=== PATIENT | male | born 1965 | race Caucasian/White ===

== ENCOUNTER 2017-07-17 14:50 | Inpatient (IN) ==
[2017-07-17] MEDS ORDERED: ASPIRIN PO STA (14:55)
[2017-07-17 15:21] LABS: MANUAL DIFF NEEDED? NO
--- NOTE | 2017-07-17 15:21 | EKG Report ---
Test Performed on : 07/17/2017 2:53:19 PM Test Reason : CHEST PAIN Blood Pressure : / mmHG Vent. Rate : 104 BPM Atrial Rate : 104 BPM P-R Int : 128 ms QRS Dur : 078 ms QT Int : 322 ms P-R-T Axes : 049 068 076 degrees QTc Int : 423 ms Sinus tachycardia. Nonspecific T wave abnormality Abnormal ECG When compared with ECG of 14-JUL-2014 12:42, No significant change was found Unconfirmed Result
[2017-07-17 15:24] LABS: BASO% 0.5 % (0.0-0.8); EOS# 0.36 X1000 (0.0-0.7); EOS% 3.9 % (0.0-10.0); HEMATOCRIT 38.5 % (42.0-52.0); IMM GRAN# 0.12 X1000 (0.0-0.04); IMM GRAN% 1.3 % (0.0-0.5); LYMPH# 2.58 X1000 (1.2-3.4); LYMPH% 28.2 % (20.5-51.1); MCHC 33.8 g/dL (33-37); MCV 91.9 FL (81-99); MONO# 0.78 X1000 (0.11-0.59); MONO% 8.5 % (1.7-9.3); MPV 9.3 FL (7.4-10.4); NEUT% 57.6 % (42.2-75.2); PLT 335 X1000 (130-400); RBC 4.19 XMIL (4.7-6.1)
--- NOTE | 2017-07-17 15:44 | PROVIDER DOCUMENTATION ---
HPI-Chest Pain - General Chief Complaint: Chest Pain Stated Complaint: RIGHT SIDED CHEST PAIN Time Seen by Provider: 07/17/17 15:30 Source: patient Allergies/Adverse Reactions: Patient Allergies Allergy/AdvReac Type Severity Reaction Status Date / Time No Known Allergies Allergy Verified 07/12/17 16:54 Home Medications: Home Medication List Medication Instructions Recorded Confirmed Last Taken Type Albuterol Sulfate Inhaler 2 puff INH Q6H PRN PRN 03/20/16 07/12/17 07/12/17 06: 00 History [Ventolin Hfa] Folic Acid 1 mg PO DAILY 03/20/16 07/12/17 07/09/17 08:00 History Gabapentin 800 mg PO TID 03/20/16 07/12/17 07/08/17 20:00 History Venlafaxine HCl [Effexor Xr] 150 mg PO DAILY 03/20/16 07/12/17 07/10/17 08:00 History Albuterol [Albuterol Neb] 2.5 mg INH TID PRN 07/12/17 07/12/17 07/11/17 20:00 History Clonazepam [Klonopin] 1 mg PO TID 07/12/17 07/12/17 07/12/17 11:30 History Prazosin [Minipress] 1 mg PO QHS 07/12/17 07/12/17 07/11/17 20:00 History Quetiapine Fumarate [Seroquel] 400 mg PO QHS 07/12/17 07/12/17 07/11/17 20:00 History - History of Present Illness-CP Nature of Presenting Problem: 52 yom c/o chest pain that started 30min [employer]. Completely subsuded by the time he arrived. Now left arm tingling. Location: reports: substernal Chest Pain Radiation: reports: arms Quality of Pain: reports: pressure Severity in ED: moderate Onset/Duration: just prior to arrival Timing: still present, improving Context/Activities at Onset: reports: none Modifying Factors: improves with: nothing Similar Symptoms Previously?: No Recently Seen Here or By Another Healthcare Provider: No Review of Systems - Adult - REVIEW OF SYSTEMS - ADULT Constitutional: reports: see HPI Eyes: reports: no symptoms reported Ears, Nose, Mouth & Throat: reports: no symptoms reported Cardiovascular: reports: see HPI, chest pain Respiratory: reports: no symptoms reported Gastrointestinal: reports: no symptoms reported Genitourinary: reports: no symptoms reported Musculoskeletal: reports: no symptoms reported Integumentary: reports: no symptoms reported Neurological: reports: no symptoms reported Psychiatric: reports: no symptoms reported Endocrine: reports: no symptoms reported Hematologic/Lymphatic: reports: no symptoms reported Allergic/Immunologic: reports: no symptoms reported All Other Systems: Reviewed and Negative Past History - Adult - PAST MEDICAL HISTORY-ADULT Review of Records: reports: Old Records Reviewed, Nursing Assessment Review, Medications Reviewed, Social history reviewed & non-contributory. Major Childhood Illnesses: reports: denies history Cardiovascular: reports: HTN (HTN meds stopped by MD), other (hx of tachydysrhythmia with ablation) Respiratory: reports: denies history Gastrointestinal: reports: denies history Obstetrical/Gynecological: reports: denies history Genitourinary: reports: denies history Musculoskeletal: reports: denies history Neurological: reports: denies history Psychiatric: reports: anxiety, depression, suicide attempt Endocrine/Immune: reports: denies history Other Conditions: reports: denies history - PRIOR SURGERIES/PROCEDURES Surgical/Procedure History: reports: none - PRIOR HOSPITALIZATIONS Prior Hospitalizations: reports: none - IMMUNIZATION STATUS Childhood Immunizations: See Nurse Assessment Flu Vaccine: See Nurse Assessment - FAMILY HISTORY Family History: reviewed, not pertinent, diabetes - SOCIAL HISTORY Provider spent 3-5 mins advising pt. on dangers of tobacco.: Discussed manners to quit use, and f/u contacts for add'l counseling. Physical Exam-General - PHYSICAL EXAM-ADULT Initial Vital Signs Reviewed: Yes - CONSTITUTIONAL General Appearance: appears well, alert, no apparent distress - EYES Eyes: PERRL/EOMI, pink conjunctivae - HEAD, EARS, NOSE, MOUTH & THROAT HENMT: normocephalic/atraumatic, moist mucous membranes, normal ENT inspection - NECK Neck: non-tender, full range of motion, supple, normal inspection - RESPIRATORY Respiratory: chest non-tender, lungs clear, normal breath sounds, no pleuratic chest pain, no respiratory distress, no accessory muscle use - CARDIOVASCULAR Cardiovascular: normal peripheral pulses, regular rate, rhythm, no edema, no gallop, no JVD, no murmur - GASTROINTESTINAL (ABDOMEN) Abdominal Exam: normal bowel sounds, non tender, soft, no organomegaly, no pulsatile mass - LYMPHATIC Lymphatic: no adenopathy - MUSCULOSKELETAL Back Exam: normal inspection, no CVA tenderness, no vertebral tenderness Extremity: normal range of motion, non-tender, normal gait, normal inspection, no pedal edema, no calf tenderness, normal capillary refill, pelvis stable Peripheral Pulses: radial (R): 2+, radial (L): 2+, dorsalis-pedis (R): 2+, dorsalis-pedis (L): 2+ - SKIN Integumentary: normal color, normal turgor, warm/dry - NEUROLOGIC Neurologic: grossly normal, no motor/sensory deficits - PSYCHIATRIC Psych/Mental Status: normal mood/affect, normal thought content, normal thought process, oriented x 3 Progress - PLAN OF CARE/RESULTS Progress/Plan/Lab Results: Vital Signs - 8 hr 07/17/17 14:52 Temperature 97.9 F Pulse Rate 104 H Respiratory Rate 20 O2 Sat by Pulse Oximetry 100 Laboratory Results - last 24 hr 07/17/17 07/17/17 07/17/17 15:12 15:12 15:12 WBC RBC Hgb Hct MCV MCH MCHC RDW Std Deviation Plt Count MPV Immature Gran % (Auto) Neut % (Auto) Lymph % (Auto) [place] % (Auto) Eos % (Auto) Baso % (Auto) Immature Gran # (Auto) Neut # (Auto) Lymph # (Auto) [place] # (Auto) Eos # (Auto) Baso # (Auto) PT INR APTT (Factor Assay) D-Dimer Sodium 140 Potassium 4.2 Chloride 104 Carbon Dioxide 26 Anion Gap 10 BUN 21 Creatinine 0.9 Estimated GFR/1.73 m2 > 60 BUN/Creatinine Ratio 23 Glucose 111 H Calculated Osmolality 283 Calcium 8.9 Magnesium 1.6 Total Bilirubin < 0.15 L AST 12 ALT 12 Alkaline Phosphatase 68 Creatine Kinase 33 Troponin T < 0.010 [id number]-V-Ksowvsxzzfi Pept 47 Total Protein 6.1 L Albumin 3.6 Globulin 3.0 Albumin/Globulin Ratio 1.0 07/17/17 07/17/17 15:12 15:12 WBC 9.15 RBC 4.19 L Hgb 13.0 L Hct 38.5 L MCV 91.9 MCH 31.0 MCHC 33.8 RDW Std Deviation 13.6 Plt Count 335 MPV 9.3 Immature Gran % (Auto) 1.3 H Neut % (Auto) 57.6 Lymph % (Auto) 28.2 [place] % (Auto) 8.5 Eos % (Auto) 3.9 Baso % (Auto) 0.5 Immature Gran # (Auto) 0.12 H Neut # (Auto) 5.26 Lymph # (Auto) 2.58 [place] # (Auto) 0.78 H Eos # (Auto) 0.36 Baso # (Auto) 0.05 PT 13.3 INR 0.94 APTT (Factor Assay) 28.2 D-Dimer 1.29 H Sodium Potassium Chloride Carbon Dioxide Anion Gap BUN Creatinine Estimated GFR/1.73 m2 BUN/Creatinine Ratio Glucose Calculated Osmolality Calcium Magnesium Total Bilirubin AST ALT Alkaline Phosphatase Creatine Kinase Troponin T Esu-O-Uiqpcmofukl Pept Total Protein Albumin Globulin Albumin/Globulin Ratio Orders Category Date Time Status Cardiac Monitoring DIRECTED Care 07/17/17 14:55 Active Saline Loc NOW Care 07/17/17 14:55 Active CHEST-2 VIEWS [RAD] Stat Exams 07/17/17 14:[address] ANGIOGRM/PULMONARY ARTERIES [CT] Stat Exams 07/17/17 15:53 Completed CBC WITH ELECTRONIC DIFF [HEME] Stat Lab 07/17/17 15:12 Completed CK PROFILE [SP CHEM] Stat Lab 07/17/17 15:12 Completed COMPREHENSIVE METABOLIC PANEL [CHEM] Stat Lab 07/17/17 15:12 Completed D-DIMER PL [COAG] Stat Lab 07/17/17 15:12 Completed MAGNESIUM [CHEM] Stat Lab 07/17/17 15:12 Completed PRO B-NATRIURETIC PEPTIDE Stat Lab 07/17/17 15:12 Completed PROTIME WITH INR PL [COAG] Stat Lab 07/17/17 15:[address] [COAG] Stat Lab 07/17/17 15:12 Completed TROPONIN T Stat Lab 07/17/17 15:12 Completed Aspirin Med 07/17/17 14:55 Discontinued 325 mg PO STAT STA EKG [EKG] Stat Ther 07/17/17 14:55 Draft Result Diagrams: 07/17/17 15:12 07/17/17 15:12 - XRAY 1 XRAY Study: Chest Impression: See EMR Report (IMPRESSION: Increasing right pleural effusion and associated right lower lobe airspace consolidation.) - CT/MRI 1 CT Study: Angiogram Impression: See EMR Report ( IMPRESSION: Worsened right pleural effusion and right lower lobe and middle lobe atelectasis and/or pneumonia. No evidence of pulmonary emboli. Electronically signed by Coy Espinoza 07/17/2017 5: 01 PM) - CONSULTS/PCP/HOSPITALIST Notification #1 *Consult/PCP/Hospitalist*: Tom Time Discussed: 17:38 Consult Disposition: Admit Departure - Departure Date of Disposition Decision: 07/17/17 Time of Disposition Decision: 17:40 DIAGNOSIS: Pleural effusion Disposition: ADMITTED INPATIENT 09 Certified Medical Emergency: Emergent Condition: Stable Referrals and Follow-Ups: None,PCP [Primary Care Provider] - - Critical Care Note This patient required my direct & personal management of CC.: No Attestation - Physician/ JENNIFER Attestation Patient care was provided by Advanced Practice Provider:: Yes Advanced Practice Provider:: Bill Mae Advanced Practice Provider documentation review:: The Mid-level provider documentation, treatment plan and medical decision making was reviewed by the physician who agrees with all treatment and medical decision making by the MLP. The physician spent face to face time with patient:: Yes Advanced Practice Provider documentation review:: Supervising physician onsite and consulted in the evaluation and care of this patient. The physician did have a face to face encounter with the patient.
[2017-07-17 15:46] LABS: INR 0.94 (0.86-1.15); PROTIME 13.3 Seconds (12.1-15.5)
[2017-07-17 15:47] LABS: PTT PL 28.2 Seconds (22.6-43.9)
--- NOTE | 2017-07-17 15:48 | Diag Imaging Result Doc PS360 ---
EXAM: CHEST-2 VIEWS HISTORY: CP TECHNIQUE: PA and Lateral chest x-ray COMPARISON: 06/25/2017 FINDINGS: The cardiomediastinal silhouette is within normal limits. There is increasing right pleural effusion and associated right basilar airspace disease. There are old bilateral rib fractures and an old healed right clavicle fracture. Left lung is clear. IMPRESSION: Increasing right pleural effusion and associated right lower lobe airspace consolidation. Electronically signed by Stephanie Montenegro 07/17/2017 3:46 PM
[2017-07-17 16:02] LABS: AGAP 10; ALBUMIN 3.6 g/dL (3.5-5.0); ALKALINE PHOSPHATASE 68 U/L (32-122); BUN 21 mg/dL (8-22); CALCIUM 8.9 mg/dL (8.8-10.2); CHLORIDE 104 mmol/L (98-107); CK PROFILE 33 U/L (24-204); COSMO 283; GOT 12 U/L (10-34); GPT 12 U/L (10-44); MAGNESIUM 1.6 mg/dL (1.5-2.7); POTASSIUM 4.2 mmol/L (3.5-5.1); SODIUM 140 mmol/L (136-145); TCO2 26 mmol/L (25-35); TOTAL BILIRUBIN < 0.15 mg/dL (0.20-1.00); TOTAL PROTEIN 6.1 g/dL (6.3-8.3)
--- NOTE | 2017-07-17 17:03 | Diag Imaging Result Doc PS360 ---
EXAM: CT ANGIOGRM/PULMONARY ARTERIES HISTORY: elevated d-dimer, chest pain TECHNIQUE: CT of the chest with intravenous contrast COMMENT: There is COPD. There is a fairly large pleural effusion on the right. No definite pulmonary arterial filling defects are present. The thoracic aorta is not distended and there is no evidence of dissection. There is consolidation in portions of the right middle and lower lobes. Some of this is probably due to compressive atelectasis. There are nonspecific mediastinal nodes which do not appear to have changed appreciably since 06/25/2017. The volume of pleural fluid on the right has increased since the previous study. There is greater consolidation and volume loss in the right middle lobe and lower lobe. There are pulmonary nodules seen in the left lower lobe on image 284 one anteriorly and one posterior medially. Both of these were present on the previous study and have not changed significantly. The regional skeleton is stable in appearance. IMPRESSION: Worsened right pleural effusion and right lower lobe and middle lobe atelectasis and/or pneumonia. No evidence of pulmonary emboli. Electronically signed by Coy Espinoza 07/17/2017 5:01 PM
[2017-07-17] MEDS ORDERED: LASIX IV ONE (17:49)
[2017-07-17] MEDS: NORCO-5 PO PRN (22:31)
[2017-07-17] MEDS: NEURONTIN PO SCH (23:15)
[2017-07-17] MEDS: KLONOPIN PO SCH (23:16)
[2017-07-18] MEDS ORDERED: TYLENOL PO PRN (01:09)
[2017-07-18] MEDS ORDERED: ZOFRAN IV PRN (01:09)
[2017-07-18] MEDS ORDERED: TUMS EXTRA STRENGTH PO ONE (03:18)
--- NOTE | 2017-07-18 03:38 | PROGRESS NOTE ---
DATE: 07/17/2017 ADDENDUM: Patient seen and examined in the ER. Plan discussed with and dictated by the nurse practitioner. Patient notes that she has been having some shortness of breath and chest pain. She states her symptoms have improved since she has been in the ER. Denies any current fevers or chills. PLAN: We will continue to follow. We will rule patient out for an IN. Her chest x-ray just shows emphysema. Further orders as needed. cc: Ranjan Santos MD
[2017-07-18] MEDS: ROCEPHIN 1 GM in NS 50 ML IV SCH (03:41)
[2017-07-18] MEDS: NORCO-5 PO PRN ×4 (04:55→21:20)
[2017-07-18 05:50] LABS: HEMATOCRIT 41.8 % (42.0-52.0); HEMOGLOBIN 13.9 g/dL (14.0-18.0); MCH 30.2 PG (27-31); MCHC 33.3 g/dL (33-37); MCV 90.9 FL (81-99); MPV 9.5 FL (7.4-10.4); RBC 4.6 XMIL (4.7-6.1)
[2017-07-18 06:17] LABS: AGAP 10; ALBUMIN 3.9 g/dL (3.5-5.0); ALKALINE PHOSPHATASE 72 U/L (32-122); BUN 20 mg/dL (8-22); CALCIUM 9.4 mg/dL (8.8-10.2); CHLORIDE 101 mmol/L (98-107); COSMO 281; GOT 16 U/L (10-34); GPT 13 U/L (10-44); POTASSIUM 4.2 mmol/L (3.5-5.1); SODIUM 140 mmol/L (136-145); TCO2 30 mmol/L (25-35); TOTAL BILIRUBIN < 0.15 mg/dL (0.20-1.00); TOTAL PROTEIN 6.5 g/dL (6.3-8.3)
--- NOTE | 2017-07-18 07:27 | Diag Imaging Result Doc PS360 ---
EXAM: CHEST-2 VIEWS - 07/18/2017 HISTORY: hypoxia TECHNIQUE: Chest two views COMPARISON: 07/17/2017 FINDINGS: No significant interval change noted compared to the previous exam. There is a medium right pleural effusion again seen. IMPRESSION: Stable exam compared to 07/17/2017. Electronically signed by Michael Madrigal 07/18/2017 7:25 AM
[2017-07-18] MEDS: EFFEXOR XR PO SCH (08:49)
[2017-07-18] MEDS: DOXYCYCLINE PO SCH ×2 (08:50→21:14)
[2017-07-18] MEDS: FOLIC ACID PO SCH (08:50)
[2017-07-18] MEDS: KLONOPIN PO SCH ×3 (08:50→21:14)
[2017-07-18] MEDS: NEURONTIN PO SCH ×3 (08:50→21:14)
[2017-07-18] MEDS: LASIX IV SCH ×2 (09:38→21:15)
[2017-07-18] MEDS: DUONEB (A & A) INH PRN ×2 (14:34→19:35)
--- NOTE | 2017-07-18 20:06 | PROGRESS NOTE ---
DATE: 07/18/2017 SUBJECTIVE: Patient denies any current chest pains or palpitations. Denies any change in shortness of breath. He states that he slept okay last night. Denies any GI or issues. OBJECTIVE: Vital Signs: Reviewed. He is afebrile. Blood pressure is stable. Heart rate 20. General: Patient is awake and alert. He is currently in no respiratory distress. He is sitting in the bed watching television. He is pleasant to talk with. HEENT: Normocephalic, atraumatic. LISA. Neck: Supple. CV: Regular rate. Chest: Relatively clear although he has decreased breath sounds on the right lower lobe. Extremities: He moves all extremities. Neurologic: No focal changes. LABORATORY: Reviewed and stable. ASSESSMENT: 1. Right middle lobe and lower lobe pleural effusion. This is really unchanged from previous exams. 2. Recurrent pneumonia. 3. Shortness of breath. PLAN: We will continue patient in the hospital. Continue Lasix and antibiotics. We will continue to follow. Hopefully, his pleural effusion will resolve. If it does not, certainly may need to get interventional radiology involved to assist in draining the effusion. cc: Ranjan Santos MD
[2017-07-18] MEDS: SEROQUEL PO SCH (21:15)
[2017-07-18] MEDS: MINIPRESS PO SCH (21:15)
[2017-07-18] MEDS: NICODERM PATCH TD PRN (22:10)
[2017-07-19] MEDS: ROCEPHIN 1 GM in NS 50 ML IV SCH (01:14)
[2017-07-19] MEDS: NEURONTIN PO SCH ×3 (05:13→21:47)
[2017-07-19] MEDS: KLONOPIN PO SCH ×3 (05:13→21:49)
[2017-07-19] MEDS: NORCO-5 PO PRN ×3 (05:17→21:48)
[2017-07-19] MEDS: FOLIC ACID PO SCH (08:46)
[2017-07-19] MEDS: EFFEXOR XR PO SCH (08:46)
[2017-07-19] MEDS: DOXYCYCLINE PO SCH ×2 (08:46→21:47)
[2017-07-19] MEDS: DUONEB (A & A) INH PRN ×3 (08:56→19:42)
[2017-07-19] MEDS: ROBITUSSIN-AC PO PRN ×2 (08:56→13:49)
[2017-07-19] MEDS: LASIX IV SCH ×2 (08:56→21:47)
[2017-07-19] MEDS: SEROQUEL PO SCH (21:47)
[2017-07-19] MEDS: MINIPRESS PO SCH (21:47)
[2017-07-19] MEDS: NICODERM PATCH TD PRN (22:16)
[2017-07-20] MEDS: ROCEPHIN 1 GM in NS 50 ML IV SCH (01:09)
[2017-07-20] MEDS: ROBITUSSIN-AC PO PRN ×3 (05:29→18:51)
[2017-07-20] MEDS: NEURONTIN PO SCH ×3 (05:29→22:10)
[2017-07-20] MEDS: KLONOPIN PO SCH ×3 (05:29→22:10)
[2017-07-20] MEDS: NORCO-5 PO PRN ×3 (05:30→18:51)
[2017-07-20 06:24] LABS: HEMATOCRIT 43.1 % (42.0-52.0); HEMOGLOBIN 14.5 g/dL (14.0-18.0); MCH 30.7 PG (27-31); MCHC 33.6 g/dL (33-37); MCV 91.3 FL (81-99); MPV 9.2 FL (7.4-10.4); RBC 4.72 XMIL (4.7-6.1)
[2017-07-20 06:45] LABS: AGAP 12; ALBUMIN 4.1 g/dL (3.5-5.0); ALKALINE PHOSPHATASE 80 U/L (32-122); BUN 28 mg/dL (8-22); CALCIUM 9.3 mg/dL (8.8-10.2); CHLORIDE 95 mmol/L (98-107); COSMO 276; GOT 16 U/L (10-34); GPT 17 U/L (10-44); MAGNESIUM 1.9 mg/dL (1.5-2.7); POTASSIUM 4.1 mmol/L (3.5-5.1); SODIUM 135 mmol/L (136-145); TCO2 29 mmol/L (25-35); TOTAL PROTEIN 6.9 g/dL (6.3-8.3)
[2017-07-20] MEDS: DUONEB (A & A) INH PRN ×3 (07:23→19:30)
--- NOTE | 2017-07-20 08:12 | Diag Imaging Result Doc PS360 ---
CHEST-2 VIEWS - 07/20/2017 INDICATION: hypoxia TECHNIQUE: COMPARISON: 07/18/2017 FINDINGS: There is no significant change in the small right basilar pleural effusion. No significant infiltrates. The left lung remains clear. IMPRESSION: No change from prior. Electronically signed by Jose A Cunningham 07/20/2017 8:10 AM
[2017-07-20] MEDS: DOXYCYCLINE PO SCH ×2 (08:36→22:10)
[2017-07-20] MEDS: EFFEXOR XR PO SCH (08:36)
[2017-07-20] MEDS: LASIX IV SCH (08:37)
[2017-07-20] MEDS: FOLIC ACID PO SCH (08:37)
--- NOTE | 2017-07-20 09:13 | PROGRESS NOTE ---
DATE: 07/19/2017 SUBJECTIVE: Patient notes that his cough is a little bit better. Does keep him up at night frequently, but overall states that his shortness of breath seems to be improved. OBJECTIVE: Vital Signs: Reviewed. He is afebrile. Blood pressure is stable. Heart rate stable. Respiratory 20. General: Patient is awake, alert, pleasant to talk with. Sitting in a chair. Fully dressed. He is in no current respiratory distress. HEENT: Normocephalic, atraumatic. LISA. Neck: Supple. CV: Regular rate. Chest: Relatively clear. Decreased breath sounds on the right base, but improved from initial presentation. Abdomen: Soft. Extremities: Moves all extremities. ASSESSMENT: 1. Right middle lobe and right lower lobe pleural effusion. Seems to be improving. 2. Recurrent pneumonia. 3. Recurrent shortness of breath. 4. Chronic tobacco abuse. 5. Anxiety. 6. Depression. PLAN: We will continue patient in hospital. Continue IV Lasix. Will recheck his labs in the a.m. Further orders as needed. Hopefully back to [facility] in the next day or 2. cc: Ranjan Santos MD
--- NOTE | 2017-07-20 14:37 | PROGRESS NOTE ---
DATE: 07/20/2017 SUBJECTIVE: Patient without any new complaints. States he still has occasional shortness of breath. Still has cough. He says that he has back pain that occasionally causes pain into his legs but this is chronic in nature and has not really changed. OBJECTIVE: Vital Signs: Reviewed. He is afebrile. Blood pressure is stable. Heart rate 90s. Respiratory rate 20. General: Patient is awake, alert. He is in no respiratory distress. He is lying in the bed comfortably. HEENT: Normocephalic, atraumatic. LISA. Neck: Supple. CV: Regular rate. Clear on the left. Decreased breath sounds but appears to be improved on the right from his admission. Abdomen: Soft. Extremities: Moves all extremities. ASSESSMENT: 1. Right middle lobe and right lower lobe pleural effusion. Appears to be improving. 2. Recurrent pneumonia with no current signs or symptoms of infection. 3. Chronic shortness of breath secondary to pleural effusion. 4. Chronic anxiety and depression. PLAN: We will change his Lasix to p.o. If he tolerates this with no other changes will re- consult Keke Rodriguez in the a.m. for further discussion on discharge. The patient is tolerating the pleural effusion. Certainly do not feel as though draining the effusion would be affective as this has happened twice already and it has come back. We will continue to attempt medical therapy with diuretics, breathing treatments, incentive spirometry. Otherwise at this point patient most likely would require chest tube if he becomes symptomatic. cc: Ranjan Santos MD
--- NOTE | 2017-07-20 16:26 | HISTORY AND PHYSICAL ---
CHIEF COMPLAINT: Right-sided chest pain. HISTORY OF PRESENT ILLNESS: This is a 52-year-old male who presented to the emergency room complaining of right-sided chest pain. It did have a sudden onset. He described his pain as a pressure-type pain that radiated to his left arm. He stated that he could tell no exacerbating or alleviating factors, although just prior to proceeding to the emergency room, the pain did subside. He denied any shortness of breath, nausea, vomiting, palpitations with this pain. EKG revealed sinus at a rate of 104 with nonspecific T-wave abnormalities. Troponin was negative. He was found to have a D-dimer of 1.29 for which he underwent a CTA pulmonary which revealed no evidence of pulmonary edema but right lower lobe and right middle lobe atelectasis and/or pneumonia with a right pleural effusion. Mr. Freitas did state that he has been having some shortness of breath and chest pain intermittently over the past weeks. He denied any fevers, chills, PND, orthopnea. PAST MEDICAL HISTORY: Hypertension, emphysema, COPD, depression. PAST SURGICAL HISTORY: Left foot surgery. SOCIAL HISTORY: Denies alcohol or illicit drug use. Does smoke a half a pack a day. ALLERGIES: No known drug allergies. HOME MEDICATIONS: A list will be obtained. REVIEW OF SYSTEMS: A 14-point review of systems is discussed with patient with pertinent positives stated in the HPI. He denies syncope, dizziness, PND, orthopnea, cough, fever, chills, nausea, vomiting, diarrhea, constipation, black or bloody vomitus, black or bloody stools, hematuria, dysuria, frequency, urgency. PHYSICAL EXAMINATION: VITAL SIGNS: Blood pressure is 114/75 with a heart rate of 79, respirations are 20, temperature is 97.7 degrees with saturations of 96%-97% on room air. CARDIOVASCULAR: Regular rate and rhythm. S1 and S2 appreciated. PULMONARY: Breath sounds are clear. No increased work of breathing noted. GASTROINTESTINAL: Abdomen is soft, nontender, nondistended. Bowel sounds in all 4 quadrants. BACK: No CVAT. No spine tenderness. MUSCULOSKELETAL: Good range of motion of joints. EXTREMITIES: No clubbing, cyanosis, or edema. Calves are nontender. Pulses are palpable x4. SKIN: Warm and dry with no rashes or lesions noted. NEUROLOGIC: Alert and oriented x3 with cranial nerves 2-12 grossly intact. DIAGNOSTICS: WBC is 9.1 with hemoglobin 13, hematocrit 38.5, and platelets of 333,000. D-dimer 1.29, sodium 140, potassium 4.2. BUN 21, creatinine 0.9, with a glucose of 111. ASSESSMENT AND PLAN: 1. Right middle lobe and lower lobe pleural effusion. 2. Recurrent pneumonia. 3. Shortness of breath. 4. Hypertension. PLAN: Will admit to the hospital and place on telemetry. Give supplemental oxygen as needed. Start Lasix, IV antibiotics. We will monitor pleural effusion. If this does not resolve, we certainly may need to get Interventional Radiology involved to drain the effusion. We will repeat chest x-ray in the morning. Dictated by ALISHA Egan for Ranjan Santos MD cc: ALISHA Egan MD
[2017-07-20] MEDS: SEROQUEL PO SCH (22:10)
[2017-07-20] MEDS: MINIPRESS PO SCH (22:10)
[2017-07-21] MEDS: ROCEPHIN 1 GM in NS 50 ML IV SCH (01:05)
[2017-07-21] MEDS: NEURONTIN PO SCH ×3 (06:09→21:28)
[2017-07-21] MEDS: KLONOPIN PO SCH ×3 (06:09→21:28)
[2017-07-21] MEDS: SYNTHROID PO SCH (06:09)
[2017-07-21] MEDS: ROBITUSSIN-AC PO PRN ×3 (06:16→18:05)
[2017-07-21] MEDS: NICODERM PATCH TD PRN (06:31)
[2017-07-21] MEDS: DUONEB (A & A) INH PRN ×2 (07:46→20:16)
[2017-07-21] MEDS: EFFEXOR XR PO SCH (08:18)
[2017-07-21] MEDS: DOXYCYCLINE PO SCH ×2 (08:18→21:29)
[2017-07-21] MEDS: LASIX PO SCH (08:18)
[2017-07-21] MEDS: FOLIC ACID PO SCH (08:18)
[2017-07-21] MEDS: TUMS PO PRN ×3 (11:06→17:59)
[2017-07-21] MEDS: NORCO-5 PO PRN ×2 (12:06→18:05)
[2017-07-21] MEDS ORDERED: G.I. COCKTAIL PO ONE (17:40)
--- NOTE | 2017-07-21 20:02 | PROGRESS NOTE ---
DATE: 07/21/2017 SUBJECTIVE: Patient without any new complaints. States that he is feeling fine. Still had some cough and some pain in his chest. He has some pain in his back when he attempts to move. Denies any fevers or chills currently. OBJECTIVE: Vital Signs: Reviewed. Temperature 97 degrees, pulse 97, respiratory 18-22, BP 113/74. General: Patient is awake and alert. He is in no respiratory distress. He is pleasant to talk with. Neck: Supple. CV: Regular rate. Chest: Clear on the left. Decreased on the right base but still improved from his initial presentation to the hospital. Extremities: Moves all extremities. Neurologic: No focal changes. ASSESSMENT: 1. Right middle and right lower lobe pleural effusion. Appears to be improving. 2. Recurrent pneumonia. 3. Recurrent shortness of breath. 4. Hypertension. 5. Recurrent depression. PLAN: We will contact [facility] as patient was brought to [place] from [place]. However, at the present time they are declining to re-evaluate him for readmission. Interestingly though, his stuff is actually still at [place]. 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 Do not feel as though attempting to remove the fluid in his chest is in his best interest at the present time. He is to continue breathing treatments, incentive spirometry as he has had this fluid removed twice already and has reoccurred. At this juncture if the fluid needs to be removed again, he certainly will need a chest tube and may require pleurodesis. If it is causing him no respiratory distress, we will continue to follow. cc: Ranjan Santos MD
[2017-07-21] MEDS: SEROQUEL PO SCH (21:28)
[2017-07-21] MEDS: MINIPRESS PO SCH (21:29)
[2017-07-22] MEDS: ROCEPHIN 1 GM in NS 50 ML IV SCH (00:43)
[2017-07-22 05:58] VITALS: BP 120/69
[2017-07-22] MEDS: KLONOPIN PO SCH (06:55)
[2017-07-22] MEDS: NEURONTIN PO SCH (06:55)
[2017-07-22] MEDS: SYNTHROID PO SCH (06:56)
[2017-07-22] MEDS: ROBITUSSIN-AC PO PRN (07:58)
[2017-07-22] MEDS: EFFEXOR XR PO SCH (07:59)
[2017-07-22] MEDS: FOLIC ACID PO SCH (07:59)
[2017-07-22] MEDS: LASIX PO SCH (07:59)
[2017-07-22] MEDS: DOXYCYCLINE PO SCH (07:59)
[2017-07-22] MEDS: NORCO-5 PO PRN (07:59)
[2017-07-22] MEDS: TUMS PO PRN (08:02)
[2017-07-22] MEDS ORDERED: VENTOLIN HFA INH PRN (08:12)
[2017-07-22] MEDS ORDERED: OMNICEF PO SCH (09:00)
--- NOTE | 2017-07-23 07:41 | DISCHARGE SUMMARY ---
ADMISSION DATE: 07/17/2017 DISCHARGE DATE: 07/22/2017 PRIMARY CARE PHYSICIAN: None. ADMISSION DIAGNOSES: 1. Right middle lobe and lower lobe pleural effusion. 2. Recurrent pneumonia. 3. Shortness of breath. 4. Hypertension. DISCHARGE DIAGNOSES: 1. Right middle lobe and lower lobe pleural effusion. 2. Recurrent pneumonia. 3. Shortness of breath. 4. Hypertension. SUMMARY OF FINDINGS: This is a 52-year-old male who presented with right-sided chest pain having a sudden onset and described as a pressure-type pain that radiated to his left arm. No exacerbating or alleviating factors were noted. His EKG showed sinus tach at 104. His troponin was negative. He was found to have a D-dimer of 1.29. He had a CTA of the pulmonary arteries which showed no evidence of pulmonary edema but a right lower lobe and right middle lobe atelectasis and/or pneumonia with a right pleural effusion. So, he was admitted, placed on IV antibiotics, diuresis. He has remained afebrile for greater than 24 hours, and it is felt that he can safely be discharged home. DISCHARGE MEDICATIONS: 1. Prescription for amoxicillin 875 mg 1 p.o. b.i.d. for 7 days, #14. No refills. 2. He will have an albuterol inhaler 2 puffs inhalation q.6 hours p.r.n. 3. Tums 500 mg after meals and at bedtime p.r.n. 4. Klonopin 2 mg p.o. t.i.d. 5. Folic acid 1 mg p.o. daily. 6. Lasix 40 mg p.o. daily, #30, with 1 refill. 7. Gabapentin 400 mg p.o. t.i.d. 8. Wayne 5 one p.o. t.i.d. p.r.n. 9. Synthroid 50 mcg p.o. daily, #30, with no refills. 10. Nicotine patch 21 mg transdermally daily p.r.n., #14, with 2 refills. 11. Minipress 1 mg p.o. at bedtime. 12. Seroquel 400 mg p.o. at bedtime. 13. Effexor XR 150 mg p.o. daily. 14. Albuterol nebs 3 times daily p.r.n. FOLLOWUP: We will give him the number to the physician referral line and the [facility] and to establish with a primary care physician. Time Spent on Discharge: 35 minutes. Dictated by ALISHA Felix for Ranjan Santos MD cc: ALISHA Felix MD
--- NOTE | 2017-07-23 12:27 | DISCHARGE SUMMARY ---
ADMISSION DATE: 07/17/2017 DISCHARGE DATE: 07/22/2017 DISCHARGE DIAGNOSES: 1. Right pleural effusion, slightly improved from admission. Patient currently is tolerating well. He is having no acute shortness of breath from this. 2. Recurrent pneumonia, improving. 3. Chronic shortness of breath, unchanged. 4. Hypertension, stable. 5. Chronic depression, improved. 6. Chronic back pain, stable. CONSULTATIONS: [facility]. PROCEDURES: None. BRIEF HOSPITAL COURSE: The patient was admitted as noted on the HPI. Treated in usual fashion. Placed on antibiotics, IV fluids, Lasix. He has tolerated very well. He was placed back on his home pain medication and Xanax. On discharge, patient is awake and alert. He is in no current respiratory distress. DISPOSITION: Patient will be discharged home. He states he no longer wants to wait for a bed at [facility], that he will follow up outpatient with treatment. He asked to refill his medications for 1 month to give him time to follow up with outpatient treatment. This was done. He will continue antibiotics. Discussed with him that he will need to follow up outpatient with pulmonology regarding his pleural effusion and possible treatment. Patient notes that he understands. cc: Ranjan Santos MD
== END 2017-07-22 11:37 | disposition home or self-care (01) ==
LOC: P.ED 14:50 → P.MEDSURG 18:16
PROVIDERS: ATTEND Family Medicine

== ENCOUNTER 2019-03-08 17:34 | Inpatient (IN) ==
--- NOTE | 2019-03-08 18:07 | Diag Imaging Result Doc PS360 ---
EXAM: CHEST-2 VIEWS 03/08/2019 HISTORY: shortness of breath/cough TECHNIQUE: PA and lateral chest COMMENT: There are patchy alveolar opacities present in the right lower lobe and middle lobe which were not present on 05/30/2018. The heart size and pulmonary vascularity are stable in appearance. IMPRESSION: Bronchopneumonia. Advise follow-up until clear. Electronically signed by Coy Espinoza 03/08/2019 6:04 PM
[2019-03-08 18:16] LABS: INFLUENZA A NEGATIVE (NEGATIVE); INFLUENZA B NEGATIVE (NEGATIVE)
[2019-03-08] MEDS ORDERED: DOXYCYCLINE PO ONE (18:51)
[2019-03-08] MEDS ORDERED: PREDNISONE PO ONE (18:51)
[2019-03-08] MEDS ORDERED: XYLOCAINE-MPF 1% INJ ONE (18:52)
[2019-03-08] MEDS ORDERED: ROCEPHIN IM ONE (18:52)
[2019-03-08 19:25] LABS: BASO# 0.04 X1000 (0.0-0.2); BASO% 0.2 % (0.0-0.8); EOS# 0.01 X1000 (0.0-0.7); HEMATOCRIT 43.7 % (42.0-52.0); HEMOGLOBIN 14.7 g/dL (14.0-18.0); IMM GRAN# 0.09 X1000 (0.0-0.04); IMM GRAN% 0.3 % (0.0-0.5); LYMPH# 1.28 X1000 (1.2-3.4); MCH 30.5 PG (27-31); MCHC 33.6 g/dL (33-37); MCV 90.7 FL (81-99); MONO# 1.17 X1000 (0.11-0.59); MONO% 4.5 % (1.7-9.3); MPV 9.8 FL (7.4-10.4); NEUT# 23.19 X1000 (1.4-6.5); PLT 248 X1000 (130-400); RBC 4.82 XMIL (4.7-6.1); RDW 14.4 % (11.5-14.5); WBC 25.78 X1000 (4.8-10.8)
[2019-03-08 19:36] LABS: AGAP 12; ALBUMIN 4.1 g/dL (3.5-5.0); ALKALINE PHOSPHATASE 69 U/L (32-122); BUN 10 mg/dL (8-22); CALCIUM 8.6 mg/dL (8.8-10.2); CHLORIDE 102 mmol/L (98-107); COSMO 281; CREATININE 0.9 mg/dL (0.7-1.2); ESTIMATED GFR > 60; GLUCOSE 152 mg/dL (70-104); GOT 13 U/L (10-34); GPT 10 U/L (10-44); POTASSIUM 4.6 mmol/L (3.5-5.1); SODIUM 140 mmol/L (136-145); TCO2 26 mmol/L (25-35); TOTAL PROTEIN 6.4 g/dL (6.3-8.3)
[2019-03-08 19:40] LABS: BANDS 1 % (0-1); LYMPHS 5 % (21-51); MONO 5 % (1-9); SEGS 89 % (42-75)
[2019-03-08] MEDS ORDERED: NS 1,000 ML IV ONE (19:49)
[2019-03-08] MEDS ORDERED: MORPHINE IV ONE (20:19)
[2019-03-08] MEDS ORDERED: NS 1,700 ML IV ONE (21:26)
[2019-03-08] MEDS ORDERED: DUONEB (A & A) INH SCH (23:30)
[2019-03-08] MEDS: DUONEB (A & A) INH PRN (23:41)
[2019-03-09] MEDS ORDERED: NEURONTIN PO ONE (00:43)
[2019-03-09] MEDS: NORCO-10 PO PRN ×3 (00:48→20:31)
[2019-03-09] MEDS: MORPHINE IV PRN ×4 (04:10→19:16)
[2019-03-09] MEDS: DUONEB (A & A) INH PRN ×2 (06:39→17:56)
[2019-03-09] MEDS: ROCEPHIN 1 GM in NS 50 ML IV SCH (09:36)
[2019-03-09] MEDS: NEURONTIN PO SCH ×4 (09:37→20:30)
[2019-03-09] MEDS: TOPROL XL PO SCH (09:37)
[2019-03-09] MEDS: ZITHROMAX 500 MG/NS 500 MG/250 ML IVPB IV SCH (09:38)
--- NOTE | 2019-03-09 15:02 | HISTORY AND PHYSICAL ---
CHIEF COMPLAINT: Cough, shortness of breath, fever, chills, body aches. HISTORY OF PRESENT ILLNESS: This is a 53-year-old gentleman who presented to the emergency room complaining of about 24 hours of cough, generalized body aches, chills, subjective fever, and shortness of breath. INCOMPLETE REPORT--DICTATION ENDS HERE. Dictated by ALISHA Egan for Ranjan Santos MD cc: ALISHA Egan MD
--- NOTE | 2019-03-09 18:09 | HISTORY AND PHYSICAL ---
CHIEF COMPLAINT: Shortness of breath, fever, body aches. HISTORY OF PRESENT ILLNESS: This is a 53-year-old gentleman, who presents to the emergency room with 24 hours of cough, subjective fever, generalized body aches and chills that have slowly progressed. At the beginning of symptoms, they were intermittent, but in the hours prior to coming to the emergency room, symptoms were persistent; therefore, he presented for evaluation. He was found to have bronchopneumonia on the right middle and lower lobes and is being admitted for further evaluation and treatment. PAST MEDICAL HISTORY: 1. Hypertension. 2. Chronic obstructive pulmonary disease. 3. Depression. 4. History of persistent right pleural effusion. PAST SURGICAL HISTORY: Left foot surgery. SOCIAL HISTORY: He denies alcohol or illicit drug use. He smokes about half a pack a day. ALLERGIES: No known drug allergies. HOME MEDICATIONS: A list will be obtained by the nursing staff. Once verified, we will review and restart as is appropriate. REVIEW OF SYSTEMS: Discussed with patient with pertinent positives stated in the HPI. He denied any syncope, dizziness, any chest pain or palpitations, a productive cough, any nausea/vomiting, diarrhea, constipation, black or bloody vomitus or stools, any hematuria, dysuria, frequency, urgency. PHYSICAL EXAMINATION: GENERAL: This is a 53-year-old male who is sitting up in the bed in no distress. VITAL SIGNS: Blood pressure 113/64 with a heart rate of 90, respirations 20, temperature is 97.8 degrees with O2 saturation running 95% on room air. EYES: Pupils are equal, round, and react to light. EOMs are intact. Sclerae anicteric. HENT: Head is normocephalic, atraumatic. Mucous membranes are moist. NECK: Supple with trachea midline. CARDIOVASCULAR: Regular rate and rhythm. S1 and S2 appreciated. EXTREMITIES: He has no lower extremity edema. Calves are nontender bilateral. Peripheral pulses are palpable x4 extremities. PULMONARY: Breath sounds are clear, although diminished at the bases. Chest rises and falls symmetric with respiration. Chest wall is nontender to palpation. GASTROINTESTINAL: Soft, nontender, nondistended with bowel sounds in all 4 quadrants. NEUROLOGIC: He is alert and oriented x3. SKIN: Warm and dry. DIAGNOSTIC STUDIES: WBC 25.7, hemoglobin 14.7, hematocrit 43.7, platelets 248,000. Sodium 140, potassium 4.6, BUN 10, creatinine 0.9, glucose 152. Influenza A and B are negative. Chest x-ray reveals right middle and lower lobe bronchopneumonia. ASSESSMENT AND PLAN: 1. Bronchopneumonia, right middle and lower lobes. We will obtain blood cultures. He was given Rocephin and azithromycin in the emergency room, which we will continue. We will start incentive spirometer. We will identify his home medications and continue these as are appropriate. 2. Leukocytosis secondary to #1. As stated above. 3. Hypertension. 4. Chronic obstructive pulmonary disease. 5. History of depression. 6. Tobacco use and abuse. PLAN: The patient will be admitted to the Medical/Surgical floor. He will be placed on telemetry. We will identify his home medications and continue as appropriate. We will repeat a CBC and CMP in the morning. For DVT prophylaxis, we will use SCDs and GI prophylaxis Prilosec. Further treatments pending hospital course. Dictated by ALISHA Egan for Ranjan Santos MD cc: ALISHA Egan MD
[2019-03-09] MEDS: SEROQUEL PO SCH (20:30)
--- NOTE | 2019-03-10 00:02 | HISTORY AND PHYSICAL ---
ADDENDUM: The patient seen and examined by myself. Full note dictated and discussed with the nurse practitioner. The patient presented to the hospital with increased fevers, chills, cough, and congestion. Denies any flu-like symptoms. He was noted to have a white count elevated. He was admitted to the hospital. He does have a known history of pulmonary fibrosis and pleural effusion. We will admit and place on antibiotics, breathing treatments, oxygen, and we will follow. cc: Ranjan Santos MD
[2019-03-10] MEDS: PRILOSEC PO SCH ×2 (05:49→06:12)
[2019-03-10] MEDS: MORPHINE IV PRN ×4 (05:49→22:40)
[2019-03-10 07:19] LABS: HEMATOCRIT 39.8 % (42.0-52.0); HEMOGLOBIN 13.1 g/dL (14.0-18.0); MCHC 32.9 g/dL (33-37); MCV 91.3 FL (81-99); MPV 10.5 FL (7.4-10.4); RBC 4.36 XMIL (4.7-6.1); RDW 14.3 % (11.5-14.5); WBC 9.01 X1000 (4.8-10.8)
[2019-03-10 07:29] LABS: AGAP 12; ALBUMIN 3.3 g/dL (3.5-5.0); ALKALINE PHOSPHATASE 57 U/L (32-122); BUN 8 mg/dL (8-22); CALCIUM 8.3 mg/dL (8.8-10.2); CHLORIDE 106 mmol/L (98-107); COSMO 286; CREATININE 0.7 mg/dL (0.7-1.2); ESTIMATED GFR > 60; GLUCOSE 184 mg/dL (70-104); GOT 12 U/L (10-34); GPT 8 U/L (10-44); POTASSIUM 3.6 mmol/L (3.5-5.1); SODIUM 142 mmol/L (136-145); TCO2 24 mmol/L (25-35)
[2019-03-10] MEDS: ZITHROMAX 500 MG/NS 500 MG/250 ML IVPB IV SCH (08:54)
[2019-03-10] MEDS: NORCO-10 PO PRN ×2 (08:55→16:32)
[2019-03-10] MEDS: EFFEXOR XR PO SCH (08:57)
[2019-03-10] MEDS: TOPROL XL PO SCH (08:58)
[2019-03-10] MEDS: REMERON PO SCH (08:58)
[2019-03-10] MEDS: NEURONTIN PO SCH ×4 (08:58→22:40)
[2019-03-10] MEDS: SEROQUEL PO SCH ×2 (08:58→22:40)
[2019-03-10] MEDS: ROCEPHIN 1 GM in NS 50 ML IV SCH (08:58)
[2019-03-10] MEDS: DUONEB (A & A) INH PRN ×2 (09:50→17:29)
--- NOTE | 2019-03-10 18:20 | PROVIDER DOCUMENTATION ---
This chart was entered by Jazmyn Lyles Scribe, acting as scribe for Sam Quintero MD. HPI-General Adult - General Chief Complaint: Flu Symptoms Stated Complaint: FLU LIKE SYSYMONS Time Seen by Provider: 03/08/19 18:37 Source: patient Allergies/Adverse Reactions: Patient Allergies Allergy/AdvReac Type Severity Reaction Status Date / Time No Known Allergies Allergy Verified 03/08/19 17:42 Home Medications: Home Medication List Medication Instructions Recorded Confirmed Last Taken Type Albuterol [Albuterol Neb] 2.5 mg INH TID PRN 07/12/17 02/17/18 07/16/17 History Clonazepam [Klonopin] 1 mg PO TID #90 tablet 07/22/17 02/17/18 Unknown Rx Quetiapine Fumarate [Seroquel] 400 mg PO QHS #30 tablet 07/22/17 02/17/18 Unknown Rx Venlafaxine HCl [Effexor Xr] 150 mg PO DAILY #30 cap.er.24h 07/22/17 02/17/18 Unknown Rx Amlodipine Besylate [Norvasc] 1 tab PO DAILY 02/17/18 02/17/18 Unknown History Gabapentin 400 mg PO 4XDAY 02/17/18 02/17/18 Unknown History Hydrocodone/APAP 10 mg/325 mg 1 each PO TID PRN 02/17/18 02/17/18 Unknown History [Acushnet-10] Mag Hydrox/Al Hydrox/Simeth 710 ml PO PRN PRN #2 oral.susp 02/17/18 Unknown Rx [Mylanta Double-Strength Liq] Metoprolol Succinate E.r. [Toprol 1 tab PO QHS 02/17/18 02/17/18 Unknown History Xl] Omeprazole [Prilosec] 20 mg PO BID #60 capsule 02/17/18 Unknown Rx Tizanidine HCl 1 tab PO TID PRN 02/17/18 02/17/18 Unknown History - History of Present Illness -Gen Adult Nature of Presenting Problems: 53yom c/o cough, sob, fever, chills, body aches since yesterday. He reports he is a current smoker. He denies nausea, vomiting, cp. The patient's is at bedside. Location of Pain/Injury: reports: none Pain Radiation: reports: no radiation Quality of Pain: reports: none Severity: reports: moderate Onset/Duration: reports: 24 hours ago (yesterday) Timing: reports: still present, intermittent, constant Context/Activities at Onset: reports: none Modifying Factors: improves with: nothing Associated Symptoms: reports: cough, fever/chills, shortness of breath. denies: chest pain, nausea, vomiting Similar Symptoms Previously?: No Recently seen or treated by another doctor?: No Review of Systems - Adult - REVIEW OF SYSTEMS - ADULT Constitutional: reports: chills, fever Eyes: denies: discharge, dry eyes Ears, Nose, Mouth & Throat: denies: ear discharge, ear pain Cardiovascular: denies: chest pain, palpitations Respiratory: reports: cough, shortness of breath Gastrointestinal: denies: abdominal pain, diarrhea, nausea, vomiting Genitourinary: denies: dysuria, hematuria Musculoskeletal: reports: muscle aches (body aches). denies: back pain, muscle weakness Integumentary: reports: no symptoms reported Neurological: denies: dizziness/vertigo, headache/migraines Psychiatric: reports: no symptoms reported Endocrine: reports: no symptoms reported Hematologic/Lymphatic: reports: no symptoms reported Allergic/Immunologic: reports: no symptoms reported All Other Systems: Reviewed and Negative Past History - Adult - PAST MEDICAL HISTORY-ADULT Review of Records: reports: Old Records Reviewed, Nursing Assessment Review, Medications Reviewed Major Childhood Illnesses: reports: denies history Cardiovascular: reports: HTN (HTN meds stopped by MD), hyperlipidemia, other (hx of tachydysrhythmia with ablation) Respiratory: reports: COPD Gastrointestinal: reports: GERD Obstetrical/Gynecological: reports: denies history Genitourinary: reports: denies history Musculoskeletal: reports: chronic pain Neurological: reports: denies history Psychiatric: reports: anxiety, depression, suicide attempt Endocrine/Immune: reports: denies history Other Conditions: reports: denies history - PRIOR SURGERIES/PROCEDURES Surgical/Procedure History: reports: none - PRIOR HOSPITALIZATIONS Prior Hospitalizations: reports: none - IMMUNIZATION STATUS Childhood Immunizations: See Nurse Assessment Flu Vaccine: See Nurse Assessment - FAMILY HISTORY Family History: reviewed, not pertinent, diabetes - SOCIAL HISTORY Provider spent 3-5 mins advising pt. on dangers of tobacco.: Discussed manners to quit use, and f/u contacts for add'l counseling. Physical Exam-General - PHYSICAL EXAM-ADULT Initial Vital Signs Reviewed: Yes - CONSTITUTIONAL General Appearance: alert, mild distress - EYES Eyes: PERRL/EOMI, pink conjunctivae - NECK Neck: non-tender, supple - RESPIRATORY Respiratory: decreased breath sounds, crackles (right lower lobe) - CARDIOVASCULAR Cardiovascular: regular rate, rhythm, no murmur. negative: bradycardia - MUSCULOSKELETAL Extremity: normal range of motion, non-tender, normal inspection. negative: deformity, erythema - SKIN Integumentary: normal color, warm/dry - NEUROLOGIC Neurologic: grossly normal, no motor/sensory deficits - PSYCHIATRIC Psych/Mental Status: normal mood/affect, normal thought content, normal thought process, oriented x 3 Progress - PLAN OF CARE/RESULTS Progress/Plan/Lab Results: Vital Signs - 8 hr 03/08/19 17:38 Temperature 97.8 F Pulse Rate 105 H Respiratory Rate 20 Blood Pressure 137/91 O2 Sat by Pulse Oximetry 95 Laboratory Results - last 24 hr 03/08/19 17:41 Influenza A (Rapid) NEGATIVE Influenza B (Rapid) NEGATIVE Orders Category Date Time Status cxr [CHEST-2 VIEWS] [RAD] Stat Exams 03/08/19 17:42 Completed CBC WITH ELECTRONIC DIFF [HEME] Stat Lab 03/08/19 18:51 Uncollected COMPREHENSIVE METABOLIC PANEL [CHEM] Stat Lab 03/08/19 18:[address] Stat Lab 03/08/19 17:41 Completed CefTRIAXONE [Rocephin] Med 03/08/19 18:52 Once 500 mg IM NOW ONE Doxycycline Med 03/08/19 18:51 Discontinued 100 mg PO NOW ONE Lidocaine 1% Pf [Xylocaine-Mpf 1%] Med 03/08/19 18:52 Once 5 ml INJ NOW ONE Prednisone Med 03/08/19 18:51 Discontinued 20 mg PO NOW ONE Result Diagrams: 03/08/19 18:56 03/08/19 18:56 - XRAY 1 XRAY Study: Chest Impression: Abnormal (COMMENT: There are patchy alveolar opacities present in the right lower lobe and middle lobe which were not present on 05/30/2018. The heart size and pulmonary vascularity are stable in appearance. IMPRESSION: Bronchopneumonia. Advise follow-up until clear.) - CONSULTS/PCP/HOSPITALIST Notification #1 *Consult/PCP/Hospitalist*: Dr. Pham Time Discussed: 19:55 Consult Disposition: Admit Departure - Departure Referrals and Follow-Ups: Justina Denney CRNP [Primary Care Provider] - Attestation - Physician/ JENNIFER Attestation Patient care was provided by Advanced Practice Provider:: No The physician spent face to face time with patient:: Yes Advanced Practice Provider documentation review:: Supervising physician onsite and consulted in the evaluation and care of this patient. The physician did have a face to face encounter with the patient. This chart was documented by the indicated scribe, (Jazmyn Lyles, L[place]) and accurately reflects the services I performed and decisions made by me, Sam Quintero MD, as attested by the provider's signature.
--- NOTE | 2019-03-10 19:52 | PROGRESS NOTE ---
DATE: 03/10/2019 SUBJECTIVE: The patient states that he is still having cough and congestion, but overall feels a little bit better. He notes that he is still having some shortness of breath, although states his fever is better. OBJECTIVE: Temperature 98 degrees, pulse 86, respiratory rate 18, BP 109/69. General: The patient is awake, very pleasant to talk with. He is still in mild respiratory distress. HEENT: Normocephalic. Neck supple. CV: Regular rate. Chest clear. No crackles currently, although decreased breath sounds bilaterally. Abdomen is soft, nondistended. Extremities: Moves all extremities. Neurologic: No changes. ASSESSMENT: 1. Bronchopneumonia, right middle and lower lobes. 2. Leukocytosis. 3. Hypertension. 4. Chronic obstructive pulmonary disease. 5. History of depression. 6. Chronic tobacco abuse. PLAN: Overall the patient clinically looks better, although he states that he is not better. Again, discussed with patient the use of incentive spirometry. We will add Acapella treatments and follow. We will continue antibiotics. cc: Ranjan Santos MD
[2019-03-11] MEDS: PRILOSEC PO SCH (06:01)
[2019-03-11 06:02] LABS: BASO# 0.03 X1000 (0.0-0.2); BASO% 0.4 % (0.0-0.8); EOS# 0.11 X1000 (0.0-0.7); EOS% 1.3 % (0.0-10.0); HEMOGLOBIN 13.2 g/dL (14.0-18.0); IMM GRAN# 0.04 X1000 (0.0-0.04); IMM GRAN% 0.5 % (0.0-0.5); LYMPH# 2.12 X1000 (1.2-3.4); LYMPH% 25.3 % (20.5-51.1); MCH 29.7 PG (27-31); MCV 89.9 FL (81-99); MONO# 0.58 X1000 (0.11-0.59); MONO% 6.9 % (1.7-9.3); MPV 9.7 FL (7.4-10.4); NEUT# 5.49 X1000 (1.4-6.5); NEUT% 65.6 % (42.2-75.2); PLT 229 X1000 (130-400); RBC 4.45 XMIL (4.7-6.1); RDW 14.1 % (11.5-14.5); WBC 8.37 X1000 (4.8-10.8)
[2019-03-11 06:08] LABS: AGAP 11; BUN 9 mg/dL (8-22); CALCIUM 8.6 mg/dL (8.8-10.2); CHLORIDE 105 mmol/L (98-107); COSMO 280; CREATININE 0.6 mg/dL (0.7-1.2); ESTIMATED GFR > 60; GLUCOSE 97 mg/dL (70-104); POTASSIUM 3.6 mmol/L (3.5-5.1); SODIUM 141 mmol/L (136-145); TCO2 26 mmol/L (25-35)
[2019-03-11] MEDS: MORPHINE IV PRN ×4 (06:30→20:10)
[2019-03-11] MEDS: DUONEB (A & A) INH PRN ×4 (08:05→19:41)
[2019-03-11] MEDS: NORCO-10 PO PRN ×2 (08:38→17:51)
[2019-03-11] MEDS: REMERON PO SCH (08:39)
[2019-03-11] MEDS: TOPROL XL PO SCH (08:39)
[2019-03-11] MEDS: ZITHROMAX PO SCH (08:39)
[2019-03-11] MEDS: NEURONTIN PO SCH ×4 (08:40→20:10)
[2019-03-11] MEDS: ROCEPHIN 1 GM in NS 50 ML IV SCH (08:40)
[2019-03-11] MEDS: EFFEXOR XR PO SCH (08:40)
[2019-03-11] MEDS: SEROQUEL PO SCH ×2 (08:40→20:11)
--- NOTE | 2019-03-11 08:47 | Diag Imaging Result Doc PS360 ---
CHEST-2 VIEWS - 03/11/2019 INDICATION: hypoxia COMPARISON: 03/08/2019 FINDINGS: There has been significant improvement in the right basilar infiltrate/bronchopneumonia. No new infiltrates. Lungs are somewhat hyperexpanded suggesting COPD. Heart size and pulmonary vascularity are normal. No pneumothorax or pleural effusion. IMPRESSION: Improvement in the right basilar infiltrates/bronchopneumonia. Electronically signed by Jose A Cunningham 03/11/2019 8:45 AM
[2019-03-11] MEDS: SOLU-MEDROL IV SCH ×2 (10:06→17:52)
[2019-03-11] MEDS: KLONOPIN PO PRN ×2 (10:32→20:10)
--- NOTE | 2019-03-12 00:45 | PROGRESS NOTE ---
DATE: 03/11/2019 SUBJECTIVE: The patient notes that he is finally starting to feel a little bit better, having less cough, less production, has not really been out of bed. Denies any fevers. OBJECTIVE: Temperature is 98.6, pulse 76, respiratory rate 18, blood pressure is 120/75.General: The patient is very pleasant to talk with, currently in mild respiratory distress which is much improved. HEENT: Normocephalic. Neck: Supple. Cardiovascular: Regular rate. Chest: Decreased breath sounds. Minimal crackles. Abdomen: Soft and nondistended. Extremities: Moves all extremities. ASSESSMENT: 1. Bronchial pneumonia, improving by her recent chest x-ray. 2. Leukocytosis. 3. Hypertension. 4. Chronic obstructive pulmonary disease. 5. Chronic tobacco abuse. PLAN: We will continue the patient in the hospital. Hopefully he can discharge home over the next day or 2 should his symptoms improve. cc: Ranjan Santos MD
[2019-03-12] MEDS: SOLU-MEDROL IV SCH ×2 (00:52→08:34)
[2019-03-12] MEDS: PRILOSEC PO SCH (06:37)
[2019-03-12] MEDS: KLONOPIN PO PRN (06:43)
[2019-03-12] MEDS: NORCO-10 PO PRN (06:43)
[2019-03-12 07:17] LABS: BASO# 0.01 X1000 (0.0-0.2); BASO% 0.1 % (0.0-0.8); HEMATOCRIT 41.7 % (42.0-52.0); HEMOGLOBIN 14.2 g/dL (14.0-18.0); IMM GRAN# 0.06 X1000 (0.0-0.04); IMM GRAN% 0.3 % (0.0-0.5); LYMPH# 1.38 X1000 (1.2-3.4); LYMPH% 7.5 % (20.5-51.1); MCH 30.1 PG (27-31); MCHC 34.1 g/dL (33-37); MCV 88.5 FL (81-99); MONO% 2.2 % (1.7-9.3); MPV 9.4 FL (7.4-10.4); NEUT# 16.54 X1000 (1.4-6.5); NEUT% 89.9 % (42.2-75.2); PLT 277 X1000 (130-400); RBC 4.71 XMIL (4.7-6.1); RDW 13.8 % (11.5-14.5); WBC 18.39 X1000 (4.8-10.8)
[2019-03-12 07:48] LABS: LYMPHS 8 % (21-51); MONO 2 % (1-9); SEGS 90 % (42-75)
[2019-03-12] MEDS: DUONEB (A & A) INH PRN (08:00)
[2019-03-12 08:29] VITALS: BP 121/85
[2019-03-12] MEDS: ROCEPHIN 1 GM in NS 50 ML IV SCH (08:33)
[2019-03-12] MEDS: ZITHROMAX PO SCH (08:34)
[2019-03-12] MEDS: EFFEXOR XR PO SCH (08:34)
[2019-03-12] MEDS: SEROQUEL PO SCH (08:34)
[2019-03-12] MEDS: TOPROL XL PO SCH (08:34)
[2019-03-12] MEDS: REMERON PO SCH (08:34)
[2019-03-12] MEDS: NEURONTIN PO SCH (08:35)
--- NOTE | 2019-03-12 14:21 | DISCHARGE SUMMARY ---
ADMISSION DATE: 03/08/2019 DISCHARGE DATE: 03/12/2019 DIAGNOSES: 1. Bronchopneumonia. 2. Leukocytosis. 3. Hypertension. 4. Chronic obstructive pulmonary disease. 5. Chronic tobacco abuse. DIAGNOSTICS: 1. Chest x-ray 03/08/2019 revealed bronchopneumonia. 2. Chest x-ray 03/11/2019 revealed improvement in the right basilar infiltrates bronchopneumonia. No new infiltrates. HOSPITAL COURSE: Mr. Freitas presented to the emergency room complaining of shortness of breath, fever and body aches. He was found to have bronchopneumonia. He was initially treated with IV Rocephin and Zithromax and he is being transitioned over to Omnicef and azithromycin on discharge. He was in COPD exacerbation. He has received steroids to taper. Thankfully, this is resolved. DISCHARGE VITAL SIGNS: Blood pressure is 121/85 with a heart rate of 100, respirations are 18, temperature is 97.6 degrees oral with room air saturations 93 to 97%. Cardiovascular: Regular rate and rhythm S1 and S2 appreciated. No murmurs. Calves are nontender bilateral. Peripheral pulses are palpable x4 extremities. Pulmonary: Breath sounds with some scattered expiratory wheezes. Chest rises and falls symmetric with respiration. Chest wall is nontender to palpation gastrointestinal abdomen is soft, nontender, nondistended with bowel sounds in all 4 quadrants. Neurologic he is alert and oriented x3. DISCHARGE MEDICATIONS: 1. Albuterol nebs t.i.d. as needed. 2. Klonopin 0.5 p.o. t.i.d. p.r.n. 3. Omnicef 300 mg p.o. b.i.d. for 5 days. 4. Zithromax 250 mg p.o. daily for 5 days. 5. Gabapentin 800 mg p.o. 4 times a day. 6. [place] 10/325 1 three times a day as needed for pain. 7. Medrol Dosepak take as directed. 8. Toprol-XL 25 mg p.o. daily. 9. Remeron 30 mg p.o. daily. 10. Seroquel 50 mg p.o. q.a.m. 11. Seroquel 400 mg p.o. at bedtime. 12. Effexor 150 mg p.o. daily. FOLLOWUP: 1. He is to follow up his primary care provider Dr. Justina Denney in the next 1 to 2 weeks. He needs to call and schedule an appointment. 2. He has an appointment this afternoon with his millinery designer in [place]. He has been encouraged to keep this appointment. 3. He is being discharged home in stable condition with family members. 4. He has been instructed to call to be seen sooner return to the ER for any syncope, dizziness, chest pain, palpitations, increasing shortness of breath, temperature greater than 101 any nausea, vomiting, diarrhea, constipation, black or bloody vomitus or stools or for any questions or concerns he may have. Dictated by ALISHA Egan for Ranjan Santos MD cc: ALISHA Egan MD
--- NOTE | 2019-03-13 18:01 | DISCHARGE SUMMARY ---
ADMISSION DATE: 03/08/2019 DISCHARGE DATE: 03/12/2019 ADDENDUM: Patient seen and examined by myself. Full note dictated and discussed with nurse practitioner. Patient presented to the hospital with increased cough, congestion, shortness of breath, work of breathing, subsequently diagnosed with bronchial pneumonia, was placed on antibiotics, breathing treatments oxygen. On discharge, his x-ray is actually improving. He notes overall he is feeling better. He is eating better. He is ambulating better and therefore will be discharged home with antibiotics. Please see full note. cc: Ranjan Santos MD
== END 2019-03-12 11:14 | disposition home or self-care (01) | DRG 190 ==
LOC: P.ED 17:34 → SUATTDRO 22:58 → P.MEDSURG 22:58
PROVIDERS: ATTEND Family Medicine
CPT/HCPCS: 71020; 71046; 80048; 80053; 83605; 85025; 85027; 87275; 87276; 87804; 94640; 94667; 94668; 94761; 94799; 96372; 96374; 99285; A9270; J0456; J0696; J2270; J2920; J7030; J7506; J7512